=== PATIENT | male | born 1970 | race Caucasian/White ===

== ENCOUNTER 2016-10-02 16:58 | Emergency (ER) | payer MEDICAID, MEDICARE ==
[~2016-10-02] VITALS: Ht 167.6 cm; Wt 74.8 kg
[~2016-10-02 16:58] MED LIST: DIVA125T12; HYDR-4663; PROZAC; RISP0.2512
[2016-10-02 17:49] LABS: Urine Bilirubin Negative (Negative); Urine Blood TRACE /uL (Negative); Urine Color Yellow (Yellow); Urine Hyaline Cast FEW /lpf (0 - 2); Urine Mucus FEW (None Seen); Urine Nitrite Negative (Negative); Urine RBC <1 /hpf (0 - 3); Urine Urobilinogen Normal (Negative); Urine pH 5.5 (5.0-8.0)
[2016-10-02 17:51] LABS: Urine Glucose 1+ mg/dL (Normal); Urine Ketone 1+ (Negative)
[2016-10-02 18:08] LABS: Basophils # (auto) 0 uL; Basophils % (auto) 0.5 % (0.0-2.0); CONDITION Y; Eosinophils # (auto) 0 uL; Eosinophils % (auto) 0.9 % (0.0-7.0); Hematocrit 40.3 % (41.0-53.0); Hemoglobin 13.6 g/dL (13.5-17.5); Lymphocytes # (auto) 1.5 uL; Lymphocytes % (auto) 33.3 % (10.0-50.0); Mean Corpuscular Hemoglobin 30.4 pg (28.0-32.0); Mean Corpuscular Hgb Conc. 33.8 g/dL (32.0-36.0); Mean Corpuscular Volume 89.7 fL (80.0-100.0); Mean Platelet Volume 11.2 fL (7.4-10.4); Monocytes # (auto) 0.4 uL; Monocytes % (auto) 8.6 % (0.0-12.0); Neutrophils # (auto) 2.6 uL; Neutrophils % (auto) 56.7 % (37.0-80.0); Platelet Count (auto) 138 10^3/uL (140-450); Red Cell Distribution Width 12.7 % (11.6-16.0); SUSPECT SEE PRINTOUT; White Blood Cell 4.6 10^3/uL (4.4-10.8)
[2016-10-02 18:21] LABS: Albumin 3.9 g/dL (3.4-5.0); BUN/Creatinine Ratio 18.2; Bilirubin, Total 0.3 mg/dL (0.2-1.0); Calcium 9.1 mg/dL (8.5-10.1); Potassium 3.1 mmol/L (3.5-5.1); Total Protein 6.8 g/dL (6.4-8.2)
[2016-10-03] MEDS ORDERED: HYDROcodone-ACET 10/325MG TAB PO ONE (00:45)
[2016-10-03 02:57] VITALS: BP 135/97
[2016-10-03] MEDS ORDERED: POTASSIUM CHL 20 Meq TABLET PO ONE ×3 (02:59→03:15)
== END 2016-10-03 03:08 | disposition home or self-care (01) ==
LOC: ER 17:01
DX: S16.1XXA Strain of muscle, fascia and tendon at neck level, initial encounter (principal); S39.012A Strain of muscle, fascia and tendon of lower back, initial encounter; S93.401A Sprain of unspecified ligament of right ankle, initial encounter; G89.4 Chronic pain syndrome; F17.210 Nicotine dependence, cigarettes, uncomplicated; Z88.6 Allergy status to analgesic agent; X58.XXXA Exposure to other specified factors, initial encounter; Y93.89 Activity, other specified; Y99.8 Other external cause status; Y92.89 Other specified places as the place of occurrence of the external cause
CPT/HCPCS: 36415; 70490; 72131; 73700; 80053; 80307; 81001; 82150; 83690; 84550; 85025

== ENCOUNTER 2020-04-04 13:30 | Emergency (ER) | payer MEDICAID ==
[~2020-04-04] VITALS: Ht 195.6 cm; Wt 74.8 kg
[~2020-04-04 13:30] MED LIST changes: -HYDR-4663; +HYDR-4833
[2020-04-04 14:49] LABS: Basophils # (auto) 0.1 10 ^3/uL (0-0.2); Basophils % (auto) 1.4 % (0.0-2.0); Eosinophils # (auto) 0.3 10 ^3/uL (0-0.8); Eosinophils % (auto) 5.1 % (0.0-7.0); Hematocrit 43.7 % (41.0-53.0); Hemoglobin 15.2 g/dL (13.5-17.5); Lymphocytes # (auto) 1.4 10 ^3/uL (0.4-5.4); Lymphocytes % (auto) 28.1 % (10.0-50.0); Mean Corpuscular Hemoglobin 30.4 pg (28.0-32.0); Mean Corpuscular Hgb Conc. 34.7 g/dL (32.0-36.0); Mean Corpuscular Volume 87.5 fL (80.0-100.0); Monocytes # (auto) 0.6 10 ^3/uL (0-1.3); Monocytes % (auto) 11.3 % (0.0-12.0); Neutrophils # (auto) 2.7 10 ^3/uL (1.6-8.6); Neutrophils % (auto) 54.1 % (37.0-80.0); Nucleated Red Blood Cells % 0.2 %; Platelet Count (auto) 218 10^3/uL (140-450); Red Blood Cells 4.99 10^6/uL (4.5-5.90); Red Cell Distribution Width 13.5 % (11.8-14.3)
[2020-04-04 15:30] LABS: Albumin 3.8 g/dL (3.4-5.0); Anion Gap 5 (5-15); Blood Urea Nitrogen 15 mg/dL (7-18); Calcium 8.7 mg/dL (8.5-10.1); Carbon Dioxide 28 mmol/L (21-32); Chloride 107 mmol/L (98-107); Glucose 92 mg/dL (74-106); Potassium 4.1 mmol/L (3.5-5.1); Sodium 140 mmol/L (136-145)
[2020-04-04 15:37] LABS: Alanine Aminotransferase 31 U/L (16-61); Alkaline Phosphatase 87 U/L (45-117); Aspartate Aminotransferase 16 U/L (15-37); BUN/Creatinine Ratio 17.9; Bilirubin, Total 0.4 mg/dL (0.2-1.0); GFR African American 126 mL/min; GFR Non-African American 104 mL/min; Total Protein 7.5 g/dL (6.4-8.2)
[2020-04-04 18:32] VITALS: BP 128/80
== END 2020-04-04 18:35 | disposition home or self-care (01) ==
LOC: EDSEX 13:30 → ER 13:30 → EDBD 13:30 → ER 18:35
DX: M54.16 Radiculopathy, lumbar region (principal); M41.86 Other forms of scoliosis, lumbar region; F17.210 Nicotine dependence, cigarettes, uncomplicated
CPT/HCPCS: 36415; 72131; 80053; 84484; 85025; 93005

== ENCOUNTER 2022-04-20 11:43 | Emergency (ER) | payer MEDICAID ==
[~2022-04-20] VITALS: Ht 167.6 cm; Wt 76.8 kg
[~2022-04-20 11:43] MED LIST changes: +ACET1CAP14 PO; +BACDST PO; +CEPH-510 PO; +ONDA-144 PO
[2022-04-20 12:55] VITALS: BP 136/76
[2022-04-20] MEDS ORDERED: ACET-1080 PO (13:06)
[2022-04-20] MEDS ORDERED: CLIN300C8 PO (13:06)
[2022-04-20] MEDS ORDERED: PRED20TA2 PO (13:06)
== END 2022-04-20 13:17 | disposition home or self-care (01) ==
LOC: ER 11:43
DX: L95.9 Vasculitis limited to the skin, unspecified (principal); F17.210 Nicotine dependence, cigarettes, uncomplicated; Z79.899 Other long term (current) drug therapy; Z79.2 Long term (current) use of antibiotics; Z88.8 Allergy status to other drugs, medicaments and biological substances

== ENCOUNTER 2022-04-28 15:37 | Emergency (ER) | payer MEDICAID ==
[~2022-04-28] VITALS: Ht 167.6 cm; Wt 75.0 kg
[~2022-04-28 15:37] MED LIST changes: +ACET-1080 PO; +CLIN300C8 PO; +PRED20TA2 PO
[2022-04-28] MEDS ORDERED: CEPH-510 PO (16:45)
[2022-04-28] MEDS ORDERED: ONDA-144 PO (16:45)
[2022-04-28 16:53] VITALS: BP 110/70
== END 2022-04-28 16:55 | disposition home or self-care (01) ==
LOC: ER 15:37
DX: L03.116 Cellulitis of left lower limb (principal); L03.115 Cellulitis of right lower limb; F32.9 Major depressive disorder, single episode, unspecified; F17.210 Nicotine dependence, cigarettes, uncomplicated; F12.90 Cannabis use, unspecified, uncomplicated; R23.1 Pallor; Z88.6 Allergy status to analgesic agent; Z79.899 Other long term (current) drug therapy

== ENCOUNTER 2022-11-21 15:43 | Emergency (ER) | payer MEDICAID ==
[~2022-11-21] VITALS: Ht 167.6 cm; Wt 75.7 kg
[~2022-11-21 15:43] MED LIST changes: +CLIN300C70 PO; -CLIN300C8 PO
[2022-11-21] MEDS ORDERED: KETOROLAC TROMETH 60MG/2ML VIAL IM ONE (21:30)
[2022-11-21] MEDS ORDERED: CYCL-837 PO (21:32)
[2022-11-21] MEDS ORDERED: ACET500T58 PO (21:32)
[2022-11-21 21:40] VITALS: BP 134/80; PULSE 80; RESP 20; TEMP 98.2; O2SAT 97
== END 2022-11-21 21:49 | disposition home or self-care (01) ==
LOC: ER 15:43
DX: S39.012A Strain of muscle, fascia and tendon of lower back, initial encounter (principal); F32.9 Major depressive disorder, single episode, unspecified; F17.210 Nicotine dependence, cigarettes, uncomplicated; F12.90 Cannabis use, unspecified, uncomplicated; Z88.6 Allergy status to analgesic agent; Z79.899 Other long term (current) drug therapy; Z98.890 Other specified postprocedural states; X58.XXXA Exposure to other specified factors, initial encounter; Y93.89 Activity, other specified; Y92.89 Other specified places as the place of occurrence of the external cause; Y99.8 Other external cause status
CPT/HCPCS: 96372; 99283; J1885